=== PATIENT | male | born 1985 | race Caucasian/White ===

== ENCOUNTER 2018-08-06 16:19 | Emergency (ER) | payer SELFPAY ==
[~2018-08-06] VITALS: Ht 167.6 cm; Wt 71.2 kg
[2018-08-06 16:49] LABS: BASO % 0.2 % (0.0-1.0); HEMATOCRIT 43.8 % (42.0-52.0); HEMOGLOBIN 15.1 g/dl (14.0-18.0); LYMPH # 1.2 10*3/uL (1.3-4.4); LYMPH % 9.8 % (27.0-41.0); MEAN CELL VOLUME 88.8 fl (80.0-94.0); MEAN CORPUSCULAR HGB 30.6 pg (27.0-31.0); MEAN CORPUSCULAR HGB CONC 34.5 g/dl (33.0-37.0); MEAN PLATELET VOLUME 10.1 fl (9.6-12.3); MONO # 0.2 10*3/uL (0.1-1.0); MONO % 1.2 % (3.0-9.0); NEUT # 10.7 10*3/uL (2.3-7.9); NEUT % 88.6 % (47.0-73.0); PLATELET COUNT AUTOMATED 288 10*3/uL (130-400); RED BLOOD COUNT 4.93 10*6/uL (4.50-5.90); RED CELL DISTRI WIDTH 12.4 % (0-14.5); WHITE BLOOD COUNT 12.1 10*3/uL (4.8-10.8)
[2018-08-06 17:06] LABS: ALBUMIN 4.4 gm/dl (3.1-4.5); ALKALINE PHOSPHATASE 72 U/L (45-117); BUN 11 mg/dl (7-24); CHLORIDE 109 mmol/L (98-107); CREATININE 1.24 mg/dL (0.70-1.30); FREE T4 0.87 ng/dl (0.76-1.46); POTASSIUM 3.3 mmol/L (3.5-5.1); SGOT/AST 14 IU/L (3-35); SGPT/ALT 32 U/L (12-78); SODIUM 142 mmol/L (136-145); TOTAL PROTEIN 7.7 gm/dL (6.4-8.2)
[2018-08-06 17:07] LABS: TROPONIN I 0.028 ng/ml (<0.045)
[2018-08-06 17:12] LABS: THYROID STIM HORMONE (HS) 0.683 uIU/ml (0.358-4.75)
[2018-08-06] MEDS ORDERED: K-TAB20 MEQ PO (19:51)
== END 2018-08-06 19:56 | disposition home or self-care (01) ==
LOC: ED 16:19
PROVIDERS: Physician Assistant
DX: E87.6 Hypokalemia (principal); R79.1 Abnormal coagulation profile